=== PATIENT | male | born 1995 | race Caucasian/White ===

== ENCOUNTER 2024-06-05 10:07 | Emergency (ER) | payer BC ==
[~2024-06-05] VITALS: Ht 170.2 cm; Wt 113.4 kg
--- NOTE | 2024-06-05 10:30 | NUR ---
PT ARRIVED TO ER, WITH C/O FEVER. MD AND RN ASSESS PT. PT AAOX4, BREATHING EVEN AND UNLABORED AT ROOM AIR. AMBULATORY WITH STEADY GAIT. MILD DIAPHORESIS, NO FEVER AT THIS MOMENT 99.2F. PT STATES THAT HE STARTED WITH FEVER EPISODES YESTERDAY, TODAY ALSO START WITH NAUSEA AND VOMITING, HIS CONCERN IS D/T AN ENDOSCOPY SURGERY THAT HE HAD LAST MONDAY, WITH NO COMPLICATIONS. PT ALSO STATES THAT THE MEDS FOR PAIN NEVER WORKED. PT DENIES CHEST PAIN OR SOB AT THIS TIME.
[2024-06-05] MEDS ORDERED: TRAM100T39 PO (10:38)
--- NOTE | 2024-06-05 10:40 | NUR ---
Notice of admission by Dr. Bui. Level of care: med/surg. Dx: Post-op infection. ER admitting notified.
[2024-06-05] MEDS: IV NORMAL SALINE 1000 ML BAG IV ONE (10:42)
[2024-06-05] MEDS ORDERED: METOCLOPRAMIDE HCL 10 MG/2 ML VIAL ONE (11:09)
[2024-06-05] MEDS ORDERED: CALCIUM CARBONATE 500 MG TAB.CHEW ONE (11:09)
[2024-06-05] MEDS ORDERED: PIPERACILLIN/TAZOBACTAM/D5W 50 ML IV ONE (11:09)
[2024-06-05] MEDS ORDERED: VANCOMYCIN IV 200 ML ONE (11:09)
[2024-06-05] MEDS ORDERED: KETOROLAC TROMETHAMINE 15 MG INJ ONE (11:09)
--- NOTE | 2024-06-05 11:23 | NUR ---
PT TAKED TO CT.
--- NOTE | 2024-06-05 11:32 | NUR ---
PT CAME BACK FROM CT.
[2024-06-05] MEDS: METOCLOPRAMIDE HCL 10 MG/2 ML VIAL IV ONE (11:36)
[2024-06-05] MEDS: KETOROLAC TROMETHAMINE 15 MG INJ IVP ONE (11:36)
[2024-06-05] MEDS: CALCIUM CARBONATE 500 MG TAB.CHEW PO STA (11:36)
[2024-06-05] MEDS: PIPERACILLIN SODIUM/TAZOBACTAM 3.375 G in IV DEXTROSE 5% 50 ML IV ONE (11:37)
[2024-06-05 11:40] LABS: BASOPHILS % (AUTO) 0.1 % (0.0-2.0); EOSINOPHILS # (AUTO) 0.6 K/uL (0.0-0.7); HEMOGLOBIN 14.7 g/dL (12.5-16.3); LYMPHOCYTES # (AUTO) 0.5 K/uL (0.8-4.8); LYMPHOCYTES % (AUTO) 4.9 % (20.5-51.5); MEAN CORPUSCULAR HEMOGLOBIN 27.4 uug (23.8-33.4); MEAN CORPUSCULAR HGB CONC 33 g/dL (32.5-36.3); MEAN CORPUSCULAR VOLUME 82.1 fL (73.0-96.2); MONOCYTES # (AUTO) 0.7 K/uL (0.1-1.30); MONOCYTES % (AUTO) 6.3 % (0.0-11.0); NEUTROPHILS # (AUTO) 8.9 K/uL (1.8-8.9); NEUTROPHILS % (AUTO) 82.7 % (38.5-71.5); PLATELET COUNT (AUTO) 224 K/uL (152-348); RED BLOOD CELL COUNT(AUTO) 5.36 MIL/uL (4.06-5.63); WHITE BLOOD COUNT (AUTO) 10.7 K/uL (3.6-10.2)
[2024-06-05 11:49] LABS: DIFFERENTIAL COMMENT 1
[2024-06-05 11:54] LABS: ALANINE AMINOTRANSFERASE 75 U/L (16-63); ALBUMIN 3.1 g/dL (3.4-5.0); ALKALINE PHOSPHATASE 60 U/L (50-136); ASPARTATE AMINOTRANSFERASE 36 U/L (15-37); BILIRUBIN,DIRECT 0.2 mg/dL (0.0-0.2); BILIRUBIN,TOTAL 0.6 mg/dL (0.2-1.0); CALCIUM 8.6 mg/dL (8.5-10.1); CARBON DIOXIDE 23 mmol/L (21-32); CHLORIDE 98 mmol/L (98-107); CREATININE 0.7 mg/dL (0.6-1.3); GLUCOSE 115 mg/dL (74-106); POTASSIUM 3.9 mmol/L (3.5-5.1); SODIUM SERUM 131 mmol/L (136-145); UREA NITROGEN, BLOOD 9 mg/dL (7-18)
[2024-06-05] MEDS: VANCOMYCIN IV 1,000 MG in IV DEXTROSE 5% 250 ML IV ONE (12:17)
[2024-06-05 12:48] LABS: *BILIRUBIN,URIN NEGATIVE (NEGATIVE); *CLARITY,URINE CLEAR (CLEAR); *COLOR,URINE YELLOW (YELLOW); *KETONES,URINE NEGATIVE (NEGATIVE); *PROTEIN,URINE NEGATIVE (NEGATIVE); *UROBILINOGEN,URINE 0.2 E.U./dl (NORMAL); LEUKOCYTE ESTERASE ,URINE NEGATIVE (NEGATIVE); NITRITE, URINE NEGATIVE (NEGATIVE); PH,URINE 6.5 (5.0-8.0); UGLUCOSE NEGATIVE (NEGATIVE)
--- NOTE | 2024-06-05 12:50 | NUR ---
MD HERNANDEZ NOTIFIES ME THAT HE DID A FOLLOW UP WITH PTS ENT SURGEON, AND THE PT IS GOING TO BE SAFETY D/C ONCE THE FLUIDS AND ATB WORKUP FINISH. PT RESTING CONFORTABLY IN GURNEY, RESPIRATIONS EVEN AND UNLABORED BILATERALLY. VS CHARTED. NO FEVER OR CHILLS AT THIS TIME.
[2024-06-05 12:51] LABS: *BLOOD, URINE TRACE (NEGATIVE)
--- NOTE | 2024-06-05 14:15 | NUR ---
SEPSIS WORKUP FINISHED. PT SAFELY DISCHARGE BY MD, INSTRUCTIONS WAS GIVEN, PT VERBALIZES UNDERSTANDING. PT INSTRUCTED TO FOLLOW UP WITH ENT SURG TOMORROW FOR FURTHER CONTROL, AND RETURN IF SYMPTOMS/SIGNS APPEARS OR GET WORSE. PT STABLE, AAOX4, NO C/O PAIN AT THIS TIME, AMBULATORY WITH STEADY GAIT, IV IS REMOVED, BLEEDING CONTROLED. LEAVES ER WITH ALL BELONGINGS IN HAND.
[2024-06-05 14:25] VITALS: BP 101/63; TEMP 208.2; O2SAT 99
[2024-06-05 14:55] LABS: BACTERIA,URINE FEW /HPF (NONE SEEN); RBC,URINE 0-3 /HPF (0-3); SQUAMOUS EPITHELIAL CELL,UR FEW /HPF (NONE SEEN); URINE AMORPHOUS URATE MANY /HPF; WBC,URINE 0-3 /HPF (0-3)
[2024-06-05 21:17] LABS: ANISOCYTOSIS 1+; BAND % (MANUAL) 5 % (0-10); EOSINOPHILS % (MANUAL) 7 % (0-8); LYMPHOCYTES % (MANUAL) 5 % (20-40); MONOCYTES % (MANUAL) 7 % (2-10); NEUTROPHILS % (MANUAL) 76 % (42-75); PLATELET ESTIMATE ADEQUATE
== END 2024-06-05 14:15 | disposition home or self-care (01) ==
LOC: ER 10:07
DX: G89.18 Other acute postprocedural pain (principal); R50.82 Postprocedural fever; Z79.899 Other long term (current) drug therapy; Z20.822 Contact with and (suspected) exposure to COVID-19
CPT/HCPCS: 99285; 96365; 70486; 96375; 71045; 96367; 96361; 96366; 87426; 80076; 80048; 81001; 85025; 84145; 85730; 87040 ×2; 84484; 36415; 93005 ×2; 83605; 85007; J1885; J2765; J2543; J3370; J7040; 70030-TC; A4606; A4663

== ENCOUNTER 2024-06-06 18:50 | Inpatient (IN) | payer BC ==
[~2024-06-06] VITALS: Ht 170.2 cm; Wt 111.1 kg
[~2024-06-06 18:50] MED LIST: TRAM100T39 PO
[2024-06-06] MEDS: IV NORMAL SALINE 1000 ML BAG IV ONE ×2 (20:35→21:01)
[2024-06-06] MEDS ORDERED: KETOROLAC TROMETHAMINE 30 MG INJ ONE (20:37)
[2024-06-06] MEDS ORDERED: CALCIUM CARBONATE 500 MG TAB.CHEW ONE (20:37)
[2024-06-06] MEDS: CALCIUM CARBONATE 500 MG TAB.CHEW PO ONE (20:40)
[2024-06-06] MEDS: KETOROLAC TROMETHAMINE 30 MG INJ IVP ONE (20:40)
[2024-06-06 20:42] LABS: BASOPHILS % (AUTO) 0.3 % (0.0-2.0); EOSINOPHILS # (AUTO) 0.7 K/uL (0.0-0.7); HEMATOCRIT 46.1 % (36.7-47.1); HEMOGLOBIN 15.2 g/dL (12.5-16.3); LYMPHOCYTES # (AUTO) 0.8 K/uL (0.8-4.8); LYMPHOCYTES % (AUTO) 8.2 % (20.5-51.5); MEAN CORPUSCULAR HEMOGLOBIN 26.9 uug (23.8-33.4); MEAN CORPUSCULAR HGB CONC 33 g/dL (32.5-36.3); MEAN CORPUSCULAR VOLUME 81.7 fL (73.0-96.2); MONOCYTES # (AUTO) 0.2 K/uL (0.1-1.30); MONOCYTES % (AUTO) 1.9 % (0.0-11.0); NEUTROPHILS # (AUTO) 8.1 K/uL (1.8-8.9); NEUTROPHILS % (AUTO) 82.6 % (38.5-71.5); PLATELET COUNT (AUTO) 210 K/uL (152-348); RED BLOOD CELL COUNT(AUTO) 5.65 MIL/uL (4.06-5.63); RED CELL DISTRIBUTION WIDTH 14.3 % (12.1-16.2); WHITE BLOOD COUNT (AUTO) 9.8 K/uL (3.6-10.2)
[2024-06-06 20:50] LABS: CALCIUM 8.7 mg/dL (8.5-10.1); POTASSIUM 4.4 mmol/L (3.5-5.1)
[2024-06-06 20:51] LABS: DIFFERENTIAL COMMENT 1
[2024-06-06 21:03] LABS: BILIRUBIN,DIRECT 0.2 mg/dL (0.0-0.2); BILIRUBIN,TOTAL 0.7 mg/dL (0.2-1.0); TOTAL PROTEIN, SERUM 7.1 g/dL (6.4-8.2)
[2024-06-06] MEDS ORDERED: diphenhydrAMINE 50 MG/1 ML VIAL ONE (21:16)
[2024-06-06] MEDS ORDERED: FAMOTIDINE. 20 MG/2 ML VIAL IV ONE (21:16)
[2024-06-06] MEDS: FAMOTIDINE. 20 MG/2 ML VIAL IV ONE (21:23)
[2024-06-06] MEDS: diphenhydrAMINE 50 MG/1 ML VIAL IV ONE (21:23)
[2024-06-06 21:44] LABS: *BILIRUBIN,URIN 1+ (NEGATIVE); *BLOOD, URINE NEGATIVE (NEGATIVE); *CLARITY,URINE CLEAR (CLEAR); *COLOR,URINE DARK YELLOW (YELLOW); *KETONES,URINE 1+ (NEGATIVE); *PROTEIN,URINE 1+ (NEGATIVE); LEUKOCYTE ESTERASE ,URINE NEGATIVE (NEGATIVE); NITRITE, URINE NEGATIVE (NEGATIVE); UGLUCOSE NEGATIVE (NEGATIVE)
[2024-06-06] MEDS ORDERED: METOCLOPRAMIDE HCL 10 MG/2 ML VIAL ONE (21:48)
[2024-06-06 21:57] LABS: BACTERIA,URINE NONE SEEN /HPF (NONE SEEN); RBC,URINE NONE SEEN /HPF (0-3); SQUAMOUS EPITHELIAL CELL,UR FEW /HPF (NONE SEEN); WBC,URINE 0-3 /HPF (0-3)
[2024-06-06] MEDS: METOCLOPRAMIDE HCL 10 MG/2 ML VIAL IV ONE (22:03)
[2024-06-06] MEDS ORDERED: CEFTRIAXONE /D5W 50ML IVPB **ER PYXIS IV ONE (22:12)
[2024-06-06] MEDS: IV LACTATED RINGERS SOLUTION 1,000 ML BAG IV ONE (22:24)
[2024-06-06] MEDS: CEFTRIAXONE 2 G in IV DEXTROSE 5% 100 ML IV ONE (22:24)
[2024-06-06] MEDS ORDERED: ACETAMINOPHEN 500 MG TABLET ONE (22:25)
[2024-06-06] MEDS: ACETAMINOPHEN 500 MG TABLET PO ONE (22:29)
[2024-06-07] MEDS ORDERED: MAGNESIUM HYDROXIDE 30 ML LIQUID UDC PO PRN (00:30)
[2024-06-07] MEDS ORDERED: ONDANSETRON 4 MG/2 ML VIAL IV PRN (00:30)
[2024-06-07] MEDS ORDERED: REMEDY ESSENTIAL ZINC PASTE 113 GM TP PRN (00:30)
[2024-06-07 02:30] VITALS: BP 96/55; TEMP 98; O2SAT 97
[2024-06-07 04:00] VITALS: BP 103/32; TEMP 98.3; O2SAT 19
[2024-06-07] MEDS: ACETAMINOPHEN 325 MG TABLET PO PRN (04:20)
[2024-06-07 07:06] LABS: BASOPHILS % (AUTO) 0.3 % (0.0-2.0); EOSINOPHILS # (AUTO) 0.5 K/uL (0.0-0.7); EOSINOPHILS % (AUTO) 9.7 % (0.0-7.0); HEMATOCRIT 39.1 % (36.7-47.1); HEMOGLOBIN 12.9 g/dL (12.5-16.3); LYMPHOCYTES # (AUTO) 0.6 K/uL (0.8-4.8); LYMPHOCYTES % (AUTO) 11.8 % (20.5-51.5); MEAN CORPUSCULAR HEMOGLOBIN 27.2 uug (23.8-33.4); MEAN CORPUSCULAR HGB CONC 33 g/dL (32.5-36.3); MEAN CORPUSCULAR VOLUME 82.1 fL (73.0-96.2); MONOCYTES # (AUTO) 0.1 K/uL (0.1-1.30); MONOCYTES % (AUTO) 2.3 % (0.0-11.0); NEUTROPHILS # (AUTO) 3.9 K/uL (1.8-8.9); NEUTROPHILS % (AUTO) 75.9 % (38.5-71.5); PLATELET COUNT (AUTO) 164 K/uL (152-348); RED BLOOD CELL COUNT(AUTO) 4.77 MIL/uL (4.06-5.63); RED CELL DISTRIBUTION WIDTH 14.4 % (12.1-16.2); WHITE BLOOD COUNT (AUTO) 5.2 K/uL (3.6-10.2)
[2024-06-07 07:18] LABS: DIFFERENTIAL COMMENT 1
[2024-06-07 07:26] LABS: THYROID STIMULATING HORMONE 1.952 mIU/mL (0.358-3.740)
[2024-06-07 07:31] LABS: ALBUMIN 2.4 g/dL (3.4-5.0); BILIRUBIN,DIRECT 0.1 mg/dL (0.0-0.2); BILIRUBIN,TOTAL 0.4 mg/dL (0.2-1.0); CALCIUM 7.9 mg/dL (8.5-10.1); CREATININE 0.9 mg/dL (0.6-1.3); MAGNESIUM 1.9 mg/dL (1.8-2.4); POTASSIUM 3.9 mmol/L (3.5-5.1); TOTAL PROTEIN, SERUM 5.9 g/dL (6.4-8.2)
[2024-06-07] MEDS: FAMOTIDINE. 20 MG/2 ML VIAL IV SCH (08:57)
[2024-06-07] MEDS: diphenhydrAMINE 50 MG/1 ML VIAL IV PRN (09:19)
== END 2024-06-07 12:45 | disposition left against medical advice (07) | DRG 862 ==
LOC: ER 18:51 → TELE3 06-07 00:15
PROVIDERS: ADMIT Nurse Practitioner Family; ATTEND Nurse Practitioner Family
DX: T81.40XA Infection following a procedure, unspecified, initial encounter (principal); G00.9 Bacterial meningitis, unspecified; E87.1 Hypo-osmolality and hyponatremia; Z53.29 Procedure and treatment not carried out because of patient's decision for other reasons; L27.0 Generalized skin eruption due to drugs and medicaments taken internally; T36.8X5A Adverse effect of other systemic antibiotics, initial encounter; R00.0 Tachycardia, unspecified; G47.30 Sleep apnea, unspecified; Y92.89 Other specified places as the place of occurrence of the external cause; R74.01 Elevation of levels of liver transaminase levels; Z98.890 Other specified postprocedural states; Z88.2 Allergy status to sulfonamides
CPT/HCPCS: 36415; 71045; 83605; 83735; 84100; 84443; 85025; 87040; 93005; A9150; G0378; J0696; J1200; J1885; J2765; J3490; J7040; J7120